=== PATIENT | male | born 1990 | race Caucasian/White ===

== ENCOUNTER 2016-10-07 23:47 | Inpatient (IN) | payer OTHER ==
[~2016-10-07] VITALS: Ht 182.9 cm; Wt 108.8 kg
[2016-10-08 00:08] LABS: MEAN CORPUSCULAR HEMOGLOBIN 28.8 pg (27.0-33.0); MEAN CORPUSCULAR HGB CONC 33.7 g/dl (32.0-36.5); MEAN CORPUSCULAR VOLUME 85.4 fl (80.0-96.0); RED CELL DISTRIBUTION WIDTH 12.7 % (11.5-14.5); WHITE BLOOD COUNT 15.6 K/mm3 (4.0-10.0)
[2016-10-08] MEDS ORDERED: HALOPERIDOL 5 MG/ML VIAL (J1630) As Ordered ONE (00:11)
[2016-10-08] MEDS ORDERED: diphenhydrAMINE INJ 50MG/ML VIAL (J1200) As Ordered ONE (00:11)
[2016-10-08 00:43] LABS: ALBUMIN 4.6 GM/DL (3.2-5.2); ALBUMIN/GLOBULIN RATIO 1.53 (1.00-1.93); ALKALINE PHOSPHATASE 101 U/L (45-117); ALT/SGPT 57 U/L (12-78); ANION GAP 13 MEQ/L (8-16); AST/SGOT 75 U/L (15-37); BILIRUBIN,DIRECT 0.2 MG/DL (0.0-0.2); BILIRUBIN,TOTAL 0.9 MG/DL (0.2-1.0); BLOOD UREA NITROGEN 40 MG/DL (7-18); CALCIUM LEVEL 8.7 MG/DL (8.5-10.1); CARBON DIOXIDE LEVEL 22 MEQ/L (21-32); CHLORIDE LEVEL 110 MEQ/L (98-107); CREATININE FOR GFR 1.77 MG/DL (0.70-1.30); GLOMERULAR FILTRATION RATE 49.8 (>60); GLUCOSE, FASTING 83 MG/DL (70-105); SODIUM LEVEL 145 MEQ/L (136-145); TOTAL PROTEIN 7.6 GM/DL (6.4-8.2)
[2016-10-08 01:15] LABS: AMPHETAMINES LEVEL URINE NEGATIVE (NEGATIVE); BENZODIAZEPINES URINE NEGATIVE (NEGATIVE); COCAINE METABOLITE URINE POSITIVE (NEGATIVE); CONTROL LINE INT CTR LINE PRESENT; METHADONE URINE NEGATIVE (NEGATIVE); OPIATES URINE NEGATIVE (NEGATIVE); TRICYCLIC ANTIDEPRESS URINE NEGATIVE (NEGATIVE)
[2016-10-08] MEDS ORDERED: PROA1AER INH (01:46)
[2016-10-08] MEDS ORDERED: IPRATROPIUM 0.5MG/ALBUTEROL 2.5MG INH SOL UD 3ML (DUONEB)(J7620) NEB PRN (02:30)
[2016-10-08] MEDS ORDERED: LORazepam 2 MG/ML VIAL (J2060) IV PRN (02:30)
[2016-10-08] MEDS ORDERED: ONDANSETRON 4MG/2ML VIAL (J2405) IV PRN (02:45)
--- NOTE | 2016-10-08 03:42 | HPE ---
DATE OF ADMISSION: 10/08/2016 PRIMARY CARE PROVIDER: None. CHIEF COMPLAINT: Confusion, altered mental status. HISTORY OF PRESENT ILLNESS: Limited secondary to patient's mental status. This is a 26-year-old male patient with underlying medical history of asthma, polysubstance abuse. Patient is actually well known to the emergency room for substance abuse in the past with recurrent emergency department (ED) visits for substance abuse. As per ED record, patient was brought in by police. Reported was doing roldan last night and patient was in the middle of the road extremely restless. Patient admits to doing Kpin to relax. In the emergency room, patient was extremely agitated and restless, was given Haldol and Ativan and Benadryl. Subsequently, patient also found to have urine toxicology preliminary positive for cocaine. Patient was also found to be in rhabdomyolysis. Subsequently, hospitalist called for admission. Further history not possible. ALLERGIES: No known allergies documented. HOME MEDICATIONS: - ProAir inhaler every 4 hours as needed PAST MEDICAL HISTORY: 1. Polysubstance abuse. 2. Asthma. PAST SURGICAL HISTORY: Unknown. SOCIAL HISTORY: ED documented patient does smoke every day, unknown amount given patient is not able to give a history. Patient uses street drugs. Possible abuse of Klonopin, Xanax and police did report patient was using roldan. Urine toxicology is positive for cocaine. FAMILY HISTORY: Unable to obtain. REVIEW OF SYSTEMS: Unable to obtain. PHYSICAL EXAMINATION: VITAL SIGNS: Heart rate 103, blood pressure 131/61, respirations 20, temperature 98.7, pulse oximetry 98% on room air. GENERAL: Patient comfortable in no acute distress, sleeping, arousable with sternal rubs, but upon arousal patient shakes his head, moves around and moans a little bit, subsequently goes back to sleep, unable to give any significant verbal answers. HEENT: Normocephalic, atraumatic. Pupils are constricted bilaterally, but reactive. PULMONARY: Bilaterally clear to auscultation. CARDIAC: Tachycardia, regular. ABDOMEN: Soft, hypoactive bowel sounds. EXTREMITIES: No edema bilateral extremities, withdrawing from pain bilateral upper and lower extremities. EKG sinus tachycardia at 101. No ST segment changes. LABORATORY: WBC 15.6, hemoglobin and hematocrit 12.2/42, platelets 260. Chemistry: Sodium 145, potassium 4, chloride 110, bicarbonate 22, anion gap 13, BUN 40, creatinine 1.77. Total CK 2782, TSH 2.22. ASSESSMENT AND PLAN: This is a 26-year-old male patient with underlying medical history of asthma, polysubstance abuse, admitted with restlessness, confusion. 1. Encephalopathy and confusion, restlessness. Likely secondary to substance abuse. Followup toxicology workup. Followup ABG, osmolality gap. Followup cardiac enzymes. Telemetry monitoring. One-to-one sitter. Aggression precautions. Nothing by mouth for now. Seizure precautions. Withdrawal precautions. Ativan as needed. Fall precautions. Will continue to monitor. Patient and family services (PFS) consulted. 2. Rhabdomyolysis. Trend CPK. Intravenous (IV) fluids for hydration. Followup kidney function. Tamez catheter for strict intake and output (I and O). Daily weight. 3. Acute on chronic renal insufficiency. Last creatinine on the blood tests was 1.4, currently at 1.77. IV fluids for hydration. Urine study as ordered. Followup ultrasound. Tamez catheter for now given will need to obtain urine from the patient and need to monitor patient in acute setting. 4. Leukocytosis. Likely reactive secondary to polysubstance abuse and encephalopathy. No source of infection. Followup urinalysis, blood cultures, chest x-ray. Followup C-reactive protein. IV fluids for hydration right now. 5. History of asthma. Patient currently not having any significant wheeze. DuoNebs as needed. 6. Deep venous thrombosis (DVT) prophylaxis. Heparin subcutaneously. DISPOSITION PLANNING: Will get CT scans, workup for acute on chronic renal failure. Pending clinical improvement, improvement in mental status.
--- NOTE | 2016-10-08 04:30 | REPUSA ---
CLINICAL HISTORY: Altered mental status. TECHNIQUE: Multiple axial brain CT scan sections were obtained from base to vertex without contrast a dministration. COMMENTS: The study shows normal configuration of sella turcica. There are no intra or extra-axial collections. There is no mass effect or midline shift. There is no evidence of hematoma formation. No hydrocephal us is present. No abnormal calcifications are noted. No significant abnormalities are seen either in the posterior fossa or supratentorial compartment. The sinuses and mastoid air cells are patent. IMPRESSION: No evidence of acute intracranial pathology. Thank you for your kind referral of this patient.
[2016-10-08 06:35] LABS: MEAN CORPUSCULAR HEMOGLOBIN 29.4 pg (27.0-33.0); MEAN CORPUSCULAR HGB CONC 33.4 g/dl (32.0-36.5); MEAN CORPUSCULAR VOLUME 88.2 fl (80.0-96.0); RED CELL DISTRIBUTION WIDTH 12.5 % (11.5-14.5); WHITE BLOOD COUNT 10.9 K/mm3 (4.0-10.0)
[2016-10-08 06:40] LABS: INR 1.16
[2016-10-08 07:21] LABS: ANION GAP 11 MEQ/L (8-16); BLOOD UREA NITROGEN 37 MG/DL (7-18); CALCIUM LEVEL 8.3 MG/DL (8.5-10.1); CARBON DIOXIDE LEVEL 23 MEQ/L (21-32); CHLORIDE LEVEL 114 MEQ/L (98-107); CREATININE FOR GFR 1.28 MG/DL (0.70-1.30); GLOMERULAR FILTRATION RATE > 60.0 (>60); GLUCOSE, FASTING 83 MG/DL (70-105); MAGNESIUM LEVEL 2.7 MG/DL (1.8-2.4); POTASSIUM SERUM 3.9 MEQ/L (3.5-5.1); SODIUM LEVEL 148 MEQ/L (136-145)
--- NOTE | 2016-10-08 07:57 | REP ---
Urinary tract sonogram: History: Acute kidney injury. Overdose. Comparison: CT chest abdomen and pelvis February 10, 2016. Findings: Scanning at the level of the urinary bladder shows no abnormality. Renal cortical echogenicity pattern is normal bilaterally and contours are smooth. There is no evidence of hydronephrosis, cyst, mass, or calculus in either kidney. The right kidney measures 10.9 x 5.0 x 6.1 cm. Left renal dimensions are 10.4 x 5.6 x 5.5 cm. The left kidney is located in the pelvis as seen on recent CT. Impression: Pelvic kidney on the left side as seen on recent CT, otherwise negative urinary tract sonography. Signed by Mookie Renee MD 10/08/2016 07:49 A
--- NOTE | 2016-10-08 08:14 | REP ---
PORTABLE CHEST X-RAY: Single view. HISTORY: Question pneumonia. Comparison chest x-rays from June 16, 2012. FINDINGS: EKG monitoring electrodes overlie the chest. The heart is not enlarged. Lungs are well inflated and clear. Pleural angles are sharp. There is an old healed right clavicle fracture. IMPRESSION: No active disease. Signed by Mookie Renee MD 10/08/2016 10:06 A
--- NOTE | 2016-10-08 09:04 | ECGEPIP ---
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
[2016-10-08] MEDS: SENOKOT S TAB PO SCH ×2 (09:14→20:04)
[2016-10-08] MEDS: HEPARIN SOD (PORCINE) 5000 UNITS/ML VIAL SC SCH ×3 (09:14→20:05)
[2016-10-08] MEDS: LR 1,000 ML IV SCH ×3 (09:15→16:30)
[2016-10-08] MEDS ORDERED: HEPARIN SOD (PORCINE) 5000 UNITS/ML VIAL As Ordered ONE (15:53)
--- NOTE | 2016-10-08 16:11 | EDDOCDS ---
Physician Documentation [facility] Name: Memo Santamaria Age: 26 yrs Sex: Male : 1990 Arrival Date: 10/07/2016 Time: 23:47 Bed 3 Private MD: Disposition: 10/08/16 01:17 Hospitalization ordered by Mireya Mcguire for Inpatient Admission. Preliminary diagnosis is Rhabdomyolysis. - Bed requested for PCU. - Status is Inpatient Admission. bcj - Condition is Stable. - Problem is new. - Symptoms have improved. Historical: - Allergies: No known drug Allergies; - Home Meds: 1. albuterol sulfate 90 mcg/actuation Inhl HFAA 1 puff every 4 hours as needed - PMHx: Asthma; - PSHx: none; - Social history: Smoking status: Patient uses tobacco products, current every day smoker. No barriers to communication noted, The patient speaks fluent Fijian, Patient uses street drugs, pt states he took Clonopin and xanax tonight . - Family history: Not pertinent. - : The pt / caregiver states he / she is not on anticoagulants. Home medication list is obtained from the patient. - Exposure Risk Screening:: None identified. Vital Signs: 10/07 23:53 BP 169 / 80; Pulse 120; Resp 20; Temp 98.7(TE); Pulse Ox 96% on R/A; Weight 106.59 kg / mlc 234.99 lbs; Height 6 ft. 0 in. (182.88 cm); Pain 0/10; 10/08 00:00 Pulse 118 MON; Pulse Ox 96% ; mlc 00:00 BP 153 / 72 (auto/); mlc 00:30 BP 131 / 61 (auto/); mlc 00:31 Pulse 100 MON; Pulse Ox 97% ; mlc 00:51 Pulse 103 MON; Pulse Ox 98% ; mlc 01:00 BP 139 / 63 (auto/); mlc 01:01 Pulse 99 MON; Pulse Ox 96% ; mlc 01:30 BP 137 / 59 (auto/); mlc 01:38 Pulse 100 MON; Pulse Ox 95% ; mlc 02:00 BP 134 / 60 (auto/); mlc 02:01 Pulse 101 MON; Pulse Ox 95% ; mlc 02:15 Pulse 102 MON; Pulse Ox 95% ; mlc 02:30 BP 115 / 56 (auto/); mlc 02:31 Pulse 101 MON; Pulse Ox 95% ; mlc 03:00 BP 138 / 75 (auto/); mlc 03:01 Pulse 92 MON; Pulse Ox 97% ; mlc 03:30 BP 137 / 63 (auto/); mlc 03:31 Pulse 95 MON; Pulse Ox 98% ; mlc 04:00 BP 137 / 60 (auto/); mlc 04:01 Pulse 92 MON; Pulse Ox 97% ; [facility] [place] 04:06 Temp 98.9(TE); mlc 05:00 BP 124 / 58 (auto/); mlc 05:04 Pulse 93 MON; Pulse Ox 97% ; mlc 06:00 BP 114 / 56 (auto/); mlc 06:01 Pulse 91 MON; Pulse Ox 96% ; mlc 06:38 Pulse 103 MON; Pulse Ox 97% ; mlc 06:59 Pulse 99 MON; Pulse Ox 95% ; kr3 07:00 BP 102 / 77 (auto/); kr3 08:01 BP 111 / 65; Pulse 100; Resp 16; Temp 96.2; Pulse Ox 100% on R/A; Pain 0/10; kr3 09:20 BP 101 / 56; Pulse 90; Resp 18; Pulse Ox 96% on R/A; kr3 10:00 BP 136 / 60 (auto/); kr3 10:00 Pulse 92 MON; Pulse Ox 95% ; kr3 11:24 BP 102 / 57; Pulse 87; Resp 18; Pulse Ox 94% on R/A; kr3 12:00 BP 128 / 60 (auto/); kr3 12:01 Pulse 85 MON; Pulse Ox 96% ; kr3 13:00 BP 112 / 54 (auto/); kr3 13:00 Pulse 85 MON; Pulse Ox 97% ; kr3 14:00 BP 108 / 58 (auto/); kr3 14:01 Pulse 90 MON; Resp 16; Temp 96.9(O); Pulse Ox 97% on R/A; kr3 14:57 BP 108 / 56; Pulse 85; Resp 16; Temp 97(O); Pulse Ox 97% on R/A; Pain 0/10; kr3 15:00 BP 131 / 57 (auto/); kr3 15:01 Pulse 85 MON; Pulse Ox 97% ; kr3 10/07 23:53 Body Mass Index 31.87 (106.59 kg, 182.88 cm) [facility] [place] MDM: 10/07 23:54 Consult PFS/PSA/Shoe Lining Fitter ordered. sep 23:54 Consult PFS/PSA/Shoe Lining Fitter: Patient's case requires discussion with on-call rishi Psychiatrist ordered. 23:54 PSA/PFS to call Nursing Showcase Maker, to enter patient data on [place] Safe Act if patient rishi involuntarily admitted or transferred for SI or HI ordered. 23:54 Confirm accurate psychiatric medication list and times of last dosage ordered. sep 23:54 Detain Pt Until Medically/PFS Cleared ordered. sep 23:56 Acetaminophen Level Ordered. EDMS 23:56 Basic Metabolic Profile Ordered. EDMS 23:56 Complete Blood Count Ordered. EDMS 23:56 Drug Eval Toxicology ED Only Ordered. EDMS 23:56 Ethyl Alcohol (ethanol) Ordered. EDMS 23:56 Liver Profile Ordered. EDMS 23:56 Salicylate Level Ordered. EDMS 23:56 Thyroid Stimulating Hormone Ordered. EDMS 23:56 ECG WITH READING ER PHYS+CARDIAG ordered. EDMS 02/04 00:00 MHE Legal paperwork was scanned into [employer] and attached to record. jfb 00:06 NS 0.9% 1000 ml IV at bolus once ordered. cs11 00:06 Haloperidol 5 mg IVP once ordered. cs11 00:06 diphenhydrAMINE 50 mg IVP once ordered. cs11 00:06 BATH SALTS URINE Ordered. EDMS 00:06 SYNTHETIC THC URINE Ordered. EDMS 00:16 CREATINE PHOSPHOKINASE Ordered. EDMS 00:40 Complete Blood Count Reviewed. cs11 00:57 Acetaminophen Level Reviewed. cs11 00:57 Basic Metabolic Profile Reviewed. cs11 00:57 Liver Profile Reviewed. cs11 00:57 Salicylate Level Reviewed. cs11 00:57 CREATINE PHOSPHOKINASE Reviewed. cs11 00:57 Ethyl Alcohol (ethanol) Reviewed. cs11 00:57 Thyroid Stimulating Hormone Reviewed. cs11 00:58 NS 0.9% 1000 ml IV at bolus once ordered. cs11 01:17 BED REQUEST+ADM ordered. EDMS 01:18 Drug Eval Toxicology ED Only Reviewed. cs11 01:44 Financial registration complete. slh 02:14 [facility] Payment Agreement was scanned into [employer] and attached to record. sl 02:25 Consult PFS/PSA/Shoe Lining Fitter complete. jfb 02:28 LACTIC ACID LEVEL, LACTATE Ordered. EDMS 02:28 CARDIAC MARKER PANEL Ordered. EDMS 02:28 OSMOLALITY,URINE Ordered. EDMS 02:28 SODIUM,RANDOM URINE Ordered. EDMS 02:28 CHLORIDE,RANDOM URINE Ordered. EDMS 02:28 POTASSIUM,RANDOM URINE Ordered. EDMS 02:29 TOTAL PROTEIN,RANDOM URINE Ordered. EDMS 02:29 CREATININE,RANDOM URINE Ordered. EDMS 02:29 URINALYSIS Ordered. EDMS 02:29 URINE CULTURE Ordered. EDMS 02:29 BLOOD CULTURES Ordered. EDMS 02:29 BLOOD CULTURES Ordered. EDMS 02:33 CT Head without contrast Ordered. EDMS 02:34 C REACTIVE PROTEIN QUANTITATIV Ordered. EDMS 02:34 RENAL US Ordered. EDMS 02:35 PROTHROMBIN TIME PROFILE\E\INR Ordered. EDMS 02:35 COMPLETE BLOOD COUNT Ordered. EDMS 02:36 BASIC METABOLIC PROFILE Ordered. EDMS 02:36 MAGNESIUM LEVEL Ordered. EDMS 02:37 Admission / Observation Status ordered. EDMS 02:48 Chest, 1 view Ordered. EDMS 03:30 CARDIAC MARKER PANEL Ordered. EDMS 04:05 LR Solution 1000 ml IV at 200 mL/hr once ordered. [facility] [place] 06:12 OSMOLALITY, SERUM Ordered. EDMS 06:37 REGULAR DIET PED PLASTIC MEJÍA ordered. EDMS Administered Medications: 00:10 Drug: NS 0.9% 1000 ml [sodium chloride 0.9 % intravenous solution] Route: IV; Rate: rishi bolus; Site: right antecubital; 01:12 Follow up: IV Status: Completed infusion [facility] [place] 00:20 Drug: Haloperidol 5 mg [haloperidol lactate 5 mg/mL injection solution (1 mL)] Route: mlc IVP; Site: right antecubital; 00:54 Follow up: Response: Anxiety is improved; No Adverse Reaction [facility] [place] 00:20 Drug: diphenhydrAMINE 50 mg [diphenhydramine 50 mg/mL injection solution (1 mL)] Route: mlc IVP; Site: right antecubital; 00:54 Follow up: Response: No Adverse Reaction [facility] 01:12 Drug: NS 0.9% 1000 ml [sodium chloride 0.9 % intravenous solution] Route: IV; Rate: mlc bolus; Site: right antecubital; 02:17 Follow up: IV Status: Completed infusion mlc 04:05 Drug: LR 1000 ml [lactated ringers intravenous solution] Route: IV; Rate: 200 mL/hr; [facility] [place] [place] Site: right antecubital; 15:01 Follow up: IV Status: Infusion continued upon admit kr3 Signatures: Dispatcher [employer] EDMS Franklin Maguire, RN RN ty Moreno, Janeth Pablo, RN Sarahy Fontana RN RN [id number] Danni Carpio RN RN [id number] Betty Arambula, PSA PSA jfb Harish Kitchen, DO DO cs11 Ofelia Gallardo,RN Stephenie Urrutia [facility] The chart was reviewed and I authenticate all verbal orders and agree with the evaluation and treatment provided.Corrections: (The following items were deleted from the chart) 00:16 00:07 CREATINE PHOSPHOKINASE+LAB ordered. EDMS EDMS 03:30 02:28 CARDIAC MARKER PANEL ordered. EDMS EDMS 06:14 02:28 OSMOLALITY, SERUM ordered. EDMS EDMS 06:16 06:14 ISOPROPANOL,ISOPROPYL ALCOHOL ordered. EDMS EDMS 06:37 02:37 NPO DIET ordered. EDMS EDMS 06:57 06:14 ETHYLENE GLYCOL ordered. EDMS EDMS 06:57 06:14 METHANOL POISON CONTROL (ED) ordered. EDMS EDMS 08:50 02:28 ARTERIAL BLOOD GAS ordered. EDMS EDMS 08:50 06:11 ARTERIAL BLOOD GAS ordered. EDMS EDMS Attachments: 02:14 [facility] [facility]
--- NOTE | 2016-10-08 16:11 | EDDOCDS ---
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 Hospitalize by Provider. cs11 06:01 CT Study completed. mlc 08:03 Ultrasound Study completed. kr3 15:12 Admission hand-off: Report Faxed Fax receipt verified by staff on PCU, unable to accept kr3 patient at this time. 15:59 Discharge Assessment: patient administered narcotics - no. The following High Risk kr3 Discharge criteria are identified: Yes, Admitted to PCU accompanied by nurse, accompanied by tech, via stretcher, on monitor, with chart. Condition: stable. Property :Personal belongings accompany Pt. 16:10 Patient left the ED. ty Signatures: Dispatcher [employer] Franklin Cantor, RN RN ty Moreno, Janeth Pablo, RN RN rishi Jc, TalitaJazzmineItzel, Plywood Layup Line Core Layer Unit ml3 Sarahy Roland,RN RN kr3 Misbah, Audelia, TRUCK LEASING MANAGER TRUCK LEASING MANAGER ar3 Betty Arambula, PSA PSA jfb Paddy Chavez, DO DO cs11 Leeanne Cruz am17 Ofelia Gallardo,JOY Izquierdo, Stephenie islash Renny, Crystal, TRUCK LEASING MANAGER TRUCK LEASING MANAGER cln Corrections: (The following items were deleted from the chart) 00:54 00:00 Straight cath inserted Specimen obtained. returned clear yellow urine. [place] [facility] [place]:39 13:38 Urine 800, (Voided), Output Total 800. kr3 kr3 14:10 14:01 Pulse 90bpm; Monitor; Pulse Ox 97%; kr3 kr3 MTDD
[2016-10-08 16:27] VITALS: BP 129/56
[2016-10-08 19:29] LABS: OSMOLALITY URINE 421 MOSM/KG (500-800)
[2016-10-08 19:58] VITALS: BP 113/54
[2016-10-08 23:59] VITALS: BP 101/50
[2016-10-09] MEDS: LR 1,000 ML IV SCH ×3 (00:04→09:38)
[2016-10-09 05:18] VITALS: BP 122/61
[2016-10-09 05:22] LABS: MEAN CORPUSCULAR HEMOGLOBIN 29.6 pg (27.0-33.0); MEAN CORPUSCULAR HGB CONC 33.7 g/dl (32.0-36.5); MEAN CORPUSCULAR VOLUME 87.9 fl (80.0-96.0); RED CELL DISTRIBUTION WIDTH 12.8 % (11.5-14.5); WHITE BLOOD COUNT 3.6 K/mm3 (4.0-10.0)
[2016-10-09] MEDS: HEPARIN SOD (PORCINE) 5000 UNITS/ML VIAL SC SCH (05:24)
[2016-10-09 05:33] LABS: ANION GAP 7 MEQ/L (8-16); BLOOD UREA NITROGEN 17 MG/DL (7-18); CALCIUM LEVEL 7.7 MG/DL (8.5-10.1); CARBON DIOXIDE LEVEL 27 MEQ/L (21-32); CHLORIDE LEVEL 110 MEQ/L (98-107); CREATININE FOR GFR 0.91 MG/DL (0.70-1.30); GLOMERULAR FILTRATION RATE > 60.0 (>60); GLUCOSE, FASTING 97 MG/DL (70-105); MAGNESIUM LEVEL 2.3 MG/DL (1.8-2.4); POTASSIUM SERUM 3.7 MEQ/L (3.5-5.1); SODIUM LEVEL 144 MEQ/L (136-145)
[2016-10-09 08:00] VITALS: BP 115/53
[2016-10-09] MEDS: SENOKOT S TAB PO SCH (09:38)
[2016-10-09 11:39] VITALS: BP 132/62
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
--- NOTE | 2016-10-10 17:11 | EDDOCDS ---
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 heart is not; enlarged. Lungs are well inflated and clear. Pleural angles are sharp. There; is an old healed right clavicle fracture.; ; IMPRESSION: No active disease.; ; ; Signed by; Mookie Renee MD 10/08/2016 10:06 A; Outcome: 01:17 Decision to Hospitalize by Provider. cs11 06:01 CT Study completed. mlc 08:03 Ultrasound Study completed. kr3 15:12 Admission hand-off: Report Faxed Fax receipt verified by staff on PCU, unable to accept kr3 patient at this time. 15:59 Discharge Assessment: patient administered narcotics - no. The following High Risk kr3 Discharge criteria are identified: Yes, Admitted to PCU accompanied by nurse, accompanied by tech, via stretcher, on monitor, with chart. Condition: stable. Property :Personal belongings accompany Pt. 16:10 Patient left the ED. [facility] Signatures: Dispatcher [employer] EDFranklin Fernandez, RN JOY Moreno, Janeth Pablo RN JOY Neville, Karen, Reg Reg gb Jc, Yu, Printing Specialist Unit ml3 Sarahy Roland,JOY HAMILTON kr3 Audelia Crawley, MANAGING JEWELER MANAGING JEWELER ar3 Betty Arambula, PSA PSA jfb Paddy Chavez, DO DO cs11 Leeanne Cruz am17 Ofelia Gallardo,RN JOY mlc Timbo, Stephenie islash Renny, Crystal, MANAGING JEWELER MANAGING JEWELER cln Karen Membreno Corrections: (The following items were deleted from the chart) 00:54 00:00 Straight cath inserted Specimen obtained. returned clear yellow urine. Patient mlc tolerated well mlc 13:39 13:38 Urine 800, (Voided), Output Total 800. kr3 kr3 14:10 14:01 Pulse 90bpm; Monitor; Pulse Ox 97%; kr3 kr3 Chart Complete MTDD
--- NOTE | 2016-10-10 17:11 | EDDOCDS ---
Physician Documentation [facility] Name: Memo Santamaria Age: 26 yrs Sex: Male : 1990 Arrival Date: 10/07/2016 Time: 23:47 Bed 3 Private MD: Disposition: 10/08/16 01:17 Hospitalization ordered by Mireya Mcguire for Inpatient Admission. Preliminary diagnosis is Rhabdomyolysis. - Bed requested for PCU. - Status is Inpatient Admission. bcj - Condition is Stable. - Problem is new. - Symptoms have improved. Historical: - Allergies: No known drug Allergies; - Home Meds: 1. albuterol sulfate 90 mcg/actuation Inhl HFAA 1 puff every 4 hours as needed - PMHx: Asthma; - PSHx: none; - Social history: Smoking status: Patient uses tobacco products, current every day smoker. No barriers to communication noted, The patient speaks fluent Filipino, Patient uses street drugs, pt states he took Clonopin and xanax tonight . - Family history: Not pertinent. - : The pt / caregiver states he / she is not on anticoagulants. Home medication list is obtained from the patient. - Exposure Risk Screening:: None identified. Vital Signs: 10/07 23:53 BP 169 / 80; Pulse 120; Resp 20; Temp 98.7(TE); Pulse Ox 96% on R/A; Weight 106.59 kg / mlc 234.99 lbs; Height 6 ft. 0 in. (182.88 cm); Pain 0/10; 10/08 00:00 Pulse 118 MON; Pulse Ox 96% ; mlc 00:00 BP 153 / 72 (auto/); mlc 00:30 BP 131 / 61 (auto/); mlc 00:31 Pulse 100 MON; Pulse Ox 97% ; mlc 00:51 Pulse 103 MON; Pulse Ox 98% ; mlc 01:00 BP 139 / 63 (auto/); mlc 01:01 Pulse 99 MON; Pulse Ox 96% ; mlc 01:30 BP 137 / 59 (auto/); mlc 01:38 Pulse 100 MON; Pulse Ox 95% ; mlc 02:00 BP 134 / 60 (auto/); mlc 02:01 Pulse 101 MON; Pulse Ox 95% ; mlc 02:15 Pulse 102 MON; Pulse Ox 95% ; mlc 02:30 BP 115 / 56 (auto/); mlc 02:31 Pulse 101 MON; Pulse Ox 95% ; mlc 03:00 BP 138 / 75 (auto/); mlc 03:01 Pulse 92 MON; Pulse Ox 97% ; mlc 03:30 BP 137 / 63 (auto/); mlc 03:31 Pulse 95 MON; Pulse Ox 98% ; mlc 04:00 BP 137 / 60 (auto/); mlc 04:01 Pulse 92 MON; Pulse Ox 97% ; [facility] 04:06 Temp 98.9(TE); mlc 05:00 BP 124 / 58 (auto/); mlc 05:04 Pulse 93 MON; Pulse Ox 97% ; mlc 06:00 BP 114 / 56 (auto/); mlc 06:01 Pulse 91 MON; Pulse Ox 96% ; mlc 06:38 Pulse 103 MON; Pulse Ox 97% ; mlc 06:59 Pulse 99 MON; Pulse Ox 95% ; kr3 07:00 BP 102 / 77 (auto/); kr3 08:01 BP 111 / 65; Pulse 100; Resp 16; Temp 96.2; Pulse Ox 100% on R/A; Pain 0/10; kr3 09:20 BP 101 / 56; Pulse 90; Resp 18; Pulse Ox 96% on R/A; kr3 10:00 BP 136 / 60 (auto/); kr3 10:00 Pulse 92 MON; Pulse Ox 95% ; kr3 11:24 BP 102 / 57; Pulse 87; Resp 18; Pulse Ox 94% on R/A; kr3 12:00 BP 128 / 60 (auto/); kr3 12:01 Pulse 85 MON; Pulse Ox 96% ; kr3 13:00 BP 112 / 54 (auto/); kr3 13:00 Pulse 85 MON; Pulse Ox 97% ; kr3 14:00 BP 108 / 58 (auto/); kr3 14:01 Pulse 90 MON; Resp 16; Temp 96.9(O); Pulse Ox 97% on R/A; kr3 14:57 BP 108 / 56; Pulse 85; Resp 16; Temp 97(O); Pulse Ox 97% on R/A; Pain 0/10; kr3 15:00 BP 131 / 57 (auto/); kr3 15:01 Pulse 85 MON; Pulse Ox 97% ; kr3 10/07 23:53 Body Mass Index 31.87 (106.59 kg, 182.88 cm) [facility] MDM: 10/07 23:54 Consult PFS/PSA/Immunology Teacher ordered. sep 23:54 Consult PFS/PSA/Immunology Teacher: Patient's case requires discussion with on-call rishi Psychiatrist ordered. 23:54 PSA/PFS to call Nursing Software Engineering Project Manager, to enter patient data on [place] Safe Act if patient rishi involuntarily admitted or transferred for SI or HI ordered. 23:54 Confirm accurate psychiatric medication list and times of last dosage ordered. sep 23:54 Detain Pt Until Medically/PFS Cleared ordered. sep 23:56 Acetaminophen Level Ordered. EDMS 23:56 Basic Metabolic Profile Ordered. EDMS 23:56 Complete Blood Count Ordered. EDMS 23:56 Drug Eval Toxicology ED Only Ordered. EDMS 23:56 Ethyl Alcohol (ethanol) Ordered. EDMS 23:56 Liver Profile Ordered. EDMS 23:56 Salicylate Level Ordered. EDMS 23:56 Thyroid Stimulating Hormone Ordered. EDMS 23:56 ECG WITH READING ER PHYS+CARDIAG ordered. EDMS 02/04 00:00 MHE Legal paperwork was scanned into [employer] and attached to record. jfb 00:06 NS 0.9% 1000 ml IV at bolus once ordered. cs11 00:06 Haloperidol 5 mg IVP once ordered. cs11 00:06 diphenhydrAMINE 50 mg IVP once ordered. cs11 00:06 BATH SALTS URINE Ordered. EDMS 00:06 SYNTHETIC THC URINE Ordered. EDMS 00:16 CREATINE PHOSPHOKINASE Ordered. EDMS 00:40 Complete Blood Count Reviewed. cs11 00:57 Acetaminophen Level Reviewed. cs11 00:57 Basic Metabolic Profile Reviewed. cs11 00:57 Liver Profile Reviewed. cs11 00:57 Salicylate Level Reviewed. cs11 00:57 CREATINE PHOSPHOKINASE Reviewed. cs11 00:57 Ethyl Alcohol (ethanol) Reviewed. cs11 00:57 Thyroid Stimulating Hormone Reviewed. cs11 00:58 NS 0.9% 1000 ml IV at bolus once ordered. cs11 01:17 BED REQUEST+ADM ordered. EDMS 01:18 Drug Eval Toxicology ED Only Reviewed. cs11 01:44 Financial registration complete. slh 02:14 [facility] Payment Agreement was scanned into [employer] and attached to record. sl 02:25 Consult PFS/PSA/Immunology Teacher complete. jfb 02:28 LACTIC ACID LEVEL, LACTATE Ordered. EDMS 02:28 CARDIAC MARKER PANEL Ordered. EDMS 02:28 OSMOLALITY,URINE Ordered. EDMS 02:28 SODIUM,RANDOM URINE Ordered. EDMS 02:28 CHLORIDE,RANDOM URINE Ordered. EDMS 02:28 POTASSIUM,RANDOM URINE Ordered. EDMS 02:29 TOTAL PROTEIN,RANDOM URINE Ordered. EDMS 02:29 CREATININE,RANDOM URINE Ordered. EDMS 02:29 URINALYSIS Ordered. EDMS 02:29 URINE CULTURE Ordered. EDMS 02:29 BLOOD CULTURES Ordered. EDMS 02:29 BLOOD CULTURES Ordered. EDMS 02:33 CT Head without contrast Ordered. EDMS 02:34 C REACTIVE PROTEIN QUANTITATIV Ordered. EDMS 02:34 RENAL US Ordered. EDMS 02:35 PROTHROMBIN TIME PROFILE\E\INR Ordered. EDMS 02:35 COMPLETE BLOOD COUNT Ordered. EDMS 02:36 BASIC METABOLIC PROFILE Ordered. EDMS 02:36 MAGNESIUM LEVEL Ordered. EDMS 02:37 Admission / Observation Status ordered. EDMS 02:48 Chest, 1 view Ordered. EDMS 03:30 CARDIAC MARKER PANEL Ordered. EDMS 04:05 LR Solution 1000 ml IV at 200 mL/hr once ordered. [facility] 06:12 OSMOLALITY, SERUM Ordered. EDMS 06:37 REGULAR DIET PED PLASTIC MEJÍA ordered. EDMS 18:50 T-Sheet-- Draft Copy was scanned into [employer] and attached to record. r 10/09 15:04 ECG/EKG was scanned into [employer] and attached to record. gb Administered Medications: 10/08 00:10 Drug: NS 0.9% 1000 ml [sodium chloride 0.9 % intravenous solution] Route: IV; Rate: rishi bolus; Site: right antecubital; 01:12 Follow up: IV Status: Completed infusion mlc 00:20 Drug: Haloperidol 5 mg [haloperidol lactate 5 mg/mL injection solution (1 mL)] Route: mlc IVP; Site: right antecubital; 00:54 Follow up: Response: Anxiety is improved; No Adverse Reaction mlc 00:20 Drug: diphenhydrAMINE 50 mg [diphenhydramine 50 mg/mL injection solution (1 mL)] Route: mlc IVP; Site: right antecubital; 00:54 Follow up: Response: No Adverse Reaction mlc 01:12 Drug: NS 0.9% 1000 ml [sodium chloride 0.9 % intravenous solution] Route: IV; Rate: mlc bolus; Site: right antecubital; 02:17 Follow up: IV Status: Completed infusion mlc 04:05 Drug: LR 1000 ml [lactated ringers intravenous solution] Route: IV; Rate: 200 mL/hr; [facility] Site: right antecubital; 15:01 Follow up: IV Status: Infusion continued upon admit kr3 Signatures: Dispatcher [employer] Franklin Cantor, RN JOY Moreno, Janeth Pablo, RN Karen Fournier, Reg Reg Sarahy Garnett RN RN kr3 Danni Carpio RN RN mf3 Betty Arambula, PSA PSA jfb Harish Kitchen, DO DO cs11 Ofelia Gallardo RN RN mlc Hook, Sandra [facility] Karen Membreno The chart was reviewed and I authenticate all verbal orders and agree with the evaluation and treatment provided.Corrections: (The following items were deleted from the chart) 00:16 00:07 CREATINE PHOSPHOKINASE+LAB ordered. EDMS EDMS 03:30 02:28 CARDIAC MARKER PANEL ordered. EDMS EDMS 06:14 02:28 OSMOLALITY, SERUM ordered. EDMS EDMS 06:16 06:14 ISOPROPANOL,ISOPROPYL ALCOHOL ordered. EDMS EDMS 06:37 02:37 NPO DIET ordered. EDMS EDMS 06:57 06:14 ETHYLENE GLYCOL ordered. EDMS EDMS 06:57 06:14 METHANOL POISON CONTROL (ED) ordered. EDMS EDMS 08:50 02:28 ARTERIAL BLOOD GAS ordered. EDMS EDMS 08:50 06:11 ARTERIAL BLOOD GAS ordered. EDMS EDMS Attachments: 02:14 [facility] Payment Agreement [facility] 18:50 T-Sheet-- Draft Copy r 10/09 15:04 ECG/EKG Chart Complete MTDD
--- NOTE | 2016-10-10 17:11 | EDDOCDS ---
Physician Documentation [facility] Name: Memo Santamaria Age: 26 yrs Sex: Male : 1990 Arrival Date: 10/07/2016 Time: 23:47 Bed 3 Private MD: Disposition: 10/08/16 01:17 Hospitalization ordered by Mireya Mcguire for Inpatient Admission. Preliminary diagnosis is Rhabdomyolysis. - Bed requested for PCU. - Status is Inpatient Admission. bcj - Condition is Stable. - Problem is new. - Symptoms have improved. Historical: - Allergies: No known drug Allergies; - Home Meds: 1. albuterol sulfate 90 mcg/actuation Inhl HFAA 1 puff every 4 hours as needed - PMHx: Asthma; - PSHx: none; - Social history: Smoking status: Patient uses tobacco products, current every day smoker. No barriers to communication noted, The patient speaks fluent [place], Patient uses street drugs, pt states he took Clonopin and xanax tonight . - Family history: Not pertinent. - : The pt / caregiver states he / she is not on anticoagulants. Home medication list is obtained from the patient. - Exposure Risk Screening:: None identified. Vital Signs: 10/07 23:53 BP 169 / 80; Pulse 120; Resp 20; Temp 98.7(TE); Pulse Ox 96% on R/A; Weight 106.59 kg / mlc 234.99 lbs; Height 6 ft. 0 in. (182.88 cm); Pain 0/10; 10/08 00:00 Pulse 118 MON; Pulse Ox 96% ; mlc 00:00 BP 153 / 72 (auto/); mlc 00:30 BP 131 / 61 (auto/); mlc 00:31 Pulse 100 MON; Pulse Ox 97% ; mlc 00:51 Pulse 103 MON; Pulse Ox 98% ; mlc 01:00 BP 139 / 63 (auto/); mlc 01:01 Pulse 99 MON; Pulse Ox 96% ; mlc 01:30 BP 137 / 59 (auto/); mlc 01:38 Pulse 100 MON; Pulse Ox 95% ; mlc 02:00 BP 134 / 60 (auto/); mlc 02:01 Pulse 101 MON; Pulse Ox 95% ; mlc 02:15 Pulse 102 MON; Pulse Ox 95% ; mlc 02:30 BP 115 / 56 (auto/); mlc 02:31 Pulse 101 MON; Pulse Ox 95% ; mlc 03:00 BP 138 / 75 (auto/); mlc 03:01 Pulse 92 MON; Pulse Ox 97% ; mlc 03:30 BP 137 / 63 (auto/); mlc 03:31 Pulse 95 MON; Pulse Ox 98% ; mlc 04:00 BP 137 / 60 (auto/); mlc 04:01 Pulse 92 MON; Pulse Ox 97% ; [facility] 04:06 Temp 98.9(TE); mlc 05:00 BP 124 / 58 (auto/); mlc 05:04 Pulse 93 MON; Pulse Ox 97% ; mlc 06:00 BP 114 / 56 (auto/); mlc 06:01 Pulse 91 MON; Pulse Ox 96% ; mlc 06:38 Pulse 103 MON; Pulse Ox 97% ; mlc 06:59 Pulse 99 MON; Pulse Ox 95% ; kr3 07:00 BP 102 / 77 (auto/); kr3 08:01 BP 111 / 65; Pulse 100; Resp 16; Temp 96.2; Pulse Ox 100% on R/A; Pain 0/10; kr3 09:20 BP 101 / 56; Pulse 90; Resp 18; Pulse Ox 96% on R/A; kr3 10:00 BP 136 / 60 (auto/); kr3 10:00 Pulse 92 MON; Pulse Ox 95% ; kr3 11:24 BP 102 / 57; Pulse 87; Resp 18; Pulse Ox 94% on R/A; kr3 12:00 BP 128 / 60 (auto/); kr3 12:01 Pulse 85 MON; Pulse Ox 96% ; kr3 13:00 BP 112 / 54 (auto/); kr3 13:00 Pulse 85 MON; Pulse Ox 97% ; kr3 14:00 BP 108 / 58 (auto/); kr3 14:01 Pulse 90 MON; Resp 16; Temp 96.9(O); Pulse Ox 97% on R/A; kr3 14:57 BP 108 / 56; Pulse 85; Resp 16; Temp 97(O); Pulse Ox 97% on R/A; Pain 0/10; kr3 15:00 BP 131 / 57 (auto/); kr3 15:01 Pulse 85 MON; Pulse Ox 97% ; kr3 10/07 23:53 Body Mass Index 31.87 (106.59 kg, 182.88 cm) [facility] MDM: 10/07 23:54 Consult PFS/PSA/Kitchen Supervisor ordered. sep 23:54 Consult PFS/PSA/Kitchen Supervisor: Patient's case requires discussion with on-call rishi Psychiatrist ordered. 23:54 PSA/PFS to call Nursing Lift Team Technician, to enter patient data on [place] Safe [place] if patient rishi involuntarily admitted or transferred for SI or HI ordered. 23:54 Confirm accurate psychiatric medication list and times of last dosage ordered. sep 23:54 Detain Pt Until Medically/PFS Cleared ordered. sep 23:56 Acetaminophen Level Ordered. EDMS 23:56 Basic Metabolic Profile Ordered. EDMS 23:56 Complete Blood Count Ordered. EDMS 23:56 Drug Eval Toxicology ED Only Ordered. EDMS 23:56 Ethyl Alcohol (ethanol) Ordered. EDMS 23:56 Liver Profile Ordered. EDMS 23:56 Salicylate Level Ordered. EDMS 23:56 Thyroid Stimulating Hormone Ordered. EDMS 23:56 ECG WITH READING ER PHYS+CARDIAG ordered. EDMS 02/04 00:00 MHE Legal paperwork was scanned into [employer] and attached to record. jfb 00:06 NS 0.9% 1000 ml IV at bolus once ordered. cs11 00:06 Haloperidol 5 mg IVP once ordered. cs11 00:06 diphenhydrAMINE 50 mg IVP once ordered. cs11 00:06 BATH SALTS URINE Ordered. EDMS 00:06 SYNTHETIC THC URINE Ordered. EDMS 00:16 CREATINE PHOSPHOKINASE Ordered. EDMS 00:40 Complete Blood Count Reviewed. cs11 00:57 Acetaminophen Level Reviewed. cs11 00:57 Basic Metabolic Profile Reviewed. cs11 00:57 Liver Profile Reviewed. cs11 00:57 Salicylate Level Reviewed. cs11 00:57 CREATINE PHOSPHOKINASE Reviewed. cs11 00:57 Ethyl Alcohol (ethanol) Reviewed. cs11 00:57 Thyroid Stimulating Hormone Reviewed. cs11 00:58 NS 0.9% 1000 ml IV at bolus once ordered. cs11 01:17 BED REQUEST+ADM ordered. EDMS 01:18 Drug Eval Toxicology ED Only Reviewed. cs11 01:44 Financial registration complete. slh 02:14 [facility] Payment Agreement was scanned into [employer] and attached to record. sl 02:25 Consult PFS/PSA/Kitchen Supervisor complete. jfb 02:28 LACTIC ACID LEVEL, LACTATE Ordered. EDMS 02:28 CARDIAC MARKER PANEL Ordered. EDMS 02:28 OSMOLALITY,URINE Ordered. EDMS 02:28 SODIUM,RANDOM URINE Ordered. EDMS 02:28 CHLORIDE,RANDOM URINE Ordered. EDMS 02:28 POTASSIUM,RANDOM URINE Ordered. EDMS 02:29 TOTAL PROTEIN,RANDOM URINE Ordered. EDMS 02:29 CREATININE,RANDOM URINE Ordered. EDMS 02:29 URINALYSIS Ordered. EDMS 02:29 URINE CULTURE Ordered. EDMS 02:29 BLOOD CULTURES Ordered. EDMS 02:29 BLOOD CULTURES Ordered. EDMS 02:33 CT Head without contrast Ordered. EDMS 02:34 C REACTIVE PROTEIN QUANTITATIV Ordered. EDMS 02:34 RENAL US Ordered. EDMS 02:35 PROTHROMBIN TIME PROFILE\E\INR Ordered. EDMS 02:35 COMPLETE BLOOD COUNT Ordered. EDMS 02:36 BASIC METABOLIC PROFILE Ordered. EDMS 02:36 MAGNESIUM LEVEL Ordered. EDMS 02:37 Admission / Observation Status ordered. EDMS 02:48 Chest, 1 view Ordered. EDMS 03:30 CARDIAC MARKER PANEL Ordered. EDMS 04:05 LR Solution 1000 ml IV at 200 mL/hr once ordered. [facility] 06:12 OSMOLALITY, SERUM Ordered. EDMS 06:37 REGULAR DIET PED PLASTIC MEJÍA ordered. EDMS 18:50 T-Sheet-- Draft Copy was scanned into [employer] and attached to record. r 10/09 15:04 ECG/EKG was scanned into [employer] and attached to record. gb Administered Medications: 10/08 00:10 Drug: NS 0.9% 1000 ml [sodium chloride 0.9 % intravenous solution] Route: IV; Rate: rishi bolus; Site: right antecubital; 01:12 Follow up: IV Status: Completed infusion mlc 00:20 Drug: Haloperidol 5 mg [haloperidol lactate 5 mg/mL injection solution (1 mL)] Route: mlc IVP; Site: right antecubital; 00:54 Follow up: Response: Anxiety is improved; No Adverse Reaction mlc 00:20 Drug: diphenhydrAMINE 50 mg [diphenhydramine 50 mg/mL injection solution (1 mL)] Route: mlc IVP; Site: right antecubital; 00:54 Follow up: Response: No Adverse Reaction mlc 01:12 Drug: NS 0.9% 1000 ml [sodium chloride 0.9 % intravenous solution] Route: IV; Rate: mlc bolus; Site: right antecubital; 02:17 Follow up: IV Status: Completed infusion mlc 04:05 Drug: LR 1000 ml [lactated ringers intravenous solution] Route: IV; Rate: 200 mL/hr; [facility] Site: right antecubital; 15:01 Follow up: IV Status: Infusion continued upon admit kr3 Signatures: Dispatcher [employer] Franklin Cantor, RN JOY Moreno, Janeth Pablo, RN Karen Fournier, Reg Reg Sarahy Garnett RN RN kr3 Danni Carpio RN RN mf3 Betty Arambula, PSA PSA jfb Harish Kitchen, DO DO cs11 Ofelia Gallardo RN RN mlc Hook, Sandra [facility] Karen Membreno The chart was reviewed and I authenticate all verbal orders and agree with the evaluation and treatment provided.Corrections: (The following items were deleted from the chart) 00:16 00:07 CREATINE PHOSPHOKINASE+LAB ordered. EDMS EDMS 03:30 02:28 CARDIAC MARKER PANEL ordered. EDMS EDMS 06:14 02:28 OSMOLALITY, SERUM ordered. EDMS EDMS 06:16 06:14 ISOPROPANOL,ISOPROPYL ALCOHOL ordered. EDMS EDMS 06:37 02:37 NPO DIET ordered. EDMS EDMS 06:57 06:14 ETHYLENE GLYCOL ordered. EDMS EDMS 06:57 06:14 METHANOL POISON CONTROL (ED) ordered. EDMS EDMS 08:50 02:28 ARTERIAL BLOOD GAS ordered. EDMS EDMS 08:50 06:11 ARTERIAL BLOOD GAS ordered. EDMS EDMS Attachments: 02:14 [facility] Payment Agreement [facility] 18:50 T-Sheet-- Draft Copy r 10/09 15:04 ECG/EKG Chart Complete MTDD
[2016-10-13 00:06] LABS: MDPV Negative (NEGATIVE); MEPHEDRONE Negative (NEGATIVE)
== END 2016-10-09 13:47 | disposition home or self-care (01) | DRG 52 ==
LOC: M ED 23:47 → M ED INP 10-08 02:34 → M PCU 10-08 16:08
PROVIDERS: ADMIT Hospitalist; ATTEND Hospitalist
DX: G92 Toxic encephalopathy (principal); N17.9 Acute kidney failure, unspecified; M62.82 Rhabdomyolysis; J45.909 Unspecified asthma, uncomplicated; T40.5X1A Poisoning by cocaine, accidental (unintentional), initial encounter; F19.10 Other psychoactive substance abuse, uncomplicated; D72.829 Elevated white blood cell count, unspecified; Z79.899 Other long term (current) drug therapy

== ENCOUNTER 2017-08-07 16:13 | Emergency (ER) | payer MEDICAID, OTHER, SELFPAY ==
[~2017-08-07] VITALS: Ht 182.9 cm; Wt 111.4 kg
[~2017-08-07 16:13] MED LIST: PROAAER10 INH
[2017-08-07 16:20] VITALS: BP 134/79
[2017-08-07] MEDS ORDERED: NS 1,000 ML IV ONE (18:15)
[2017-08-07 18:26] LABS: MEAN CORPUSCULAR HGB CONC 35.9 g/dl (32.0-36.5); MEAN CORPUSCULAR VOLUME 83.6 fl (80.0-96.0); PLATELET COUNT, AUTOMATED 252 10^3/uL (150-450); RED CELL DISTRIBUTION WIDTH 12.3 % (11.5-14.5); WHITE BLOOD COUNT 20.3 10^3/uL (4.0-10.0)
[2017-08-07] MEDS ORDERED: LIDOCAINE 1% MDV 20ML VIAL As Ordered ONE (18:27)
[2017-08-07 18:33] LABS: ADD MANUAL DIFFER YES; DIFF SLIDE NUMBER 362; POSITIVE DIFF POS FLAG
[2017-08-07 18:53] LABS: ANION GAP 11 MEQ/L (8-16); BLOOD UREA NITROGEN 46 MG/DL (7-18); CARBON DIOXIDE LEVEL 23 MEQ/L (21-32); CHLORIDE LEVEL 106 MEQ/L (98-107); CREATININE FOR GFR 1.84 MG/DL (0.70-1.30); GLOMERULAR FILTRATION RATE 47.2 (>60); GLUCOSE, FASTING 95 MG/DL (70-105); POTASSIUM SERUM 4.1 MEQ/L (3.5-5.1); SODIUM LEVEL 140 MEQ/L (136-145)
[2017-08-07 18:53] LABS: METHADONE URINE NEGATIVE (NEGATIVE)
[2017-08-07 19:13] LABS: EOSINOPHILS 1 % (0-5)
== END 2017-08-07 19:37 | disposition left against medical advice (07) ==
LOC: EDBD 16:13 → M ED 16:13
DX: S51.812A Laceration without foreign body of left forearm, initial encounter (principal); N17.9 Acute kidney failure, unspecified; D72.829 Elevated white blood cell count, unspecified; X99.1XXA Assault by knife, initial encounter; Y92.89 Other specified places as the place of occurrence of the external cause; Y93.89 Activity, other specified; Y99.9 Unspecified external cause status
CPT/HCPCS: 12002; 80048; 80307; 85025; 99284; G0480

== ENCOUNTER 2017-08-21 17:47 | Emergency (ER) | payer MEDICAID ==
[~2017-08-21] VITALS: Ht 182.9 cm; Wt 109.1 kg
[2017-08-21 17:47] VITALS: BP 141/88
[2017-08-21] MEDS ORDERED: KEFL500C17 PO (18:47)
== END 2017-08-21 19:02 | disposition home or self-care (01) ==
LOC: M ED 17:47
DX: S90.822A Blister (nonthermal), left foot, initial encounter (principal); X58.XXXA Exposure to other specified factors, initial encounter; Y92.9 Unspecified place or not applicable; Y93.9 Activity, unspecified; Y99.9 Unspecified external cause status; F17.200 Nicotine dependence, unspecified, uncomplicated; S51.819D Laceration without foreign body of unspecified forearm, subsequent encounter; X58.XXXD Exposure to other specified factors, subsequent encounter

== ENCOUNTER 2017-09-16 09:06 | Emergency (ER) | payer OTHER, MEDICAID ==
[2017-09-16 09:42] LABS: HEMATOCRIT 42.3 % (42.0-52.0); HEMOGLOBIN 14.4 g/dl (14.0-18.0); MEAN CORPUSCULAR HEMOGLOBIN 29.1 pg (27.0-33.0); MEAN CORPUSCULAR VOLUME 85.5 fl (80.0-96.0); PLATELET COUNT, AUTOMATED 238 10^3/uL (150-450); RED BLOOD COUNT 4.95 10^6/uL (4.30-6.10); RED CELL DISTRIBUTION WIDTH 12.7 % (11.5-14.5); WHITE BLOOD COUNT 17.8 10^3/uL (4.0-10.0)
[2017-09-16 10:22] LABS: AMPHETAMINES LEVEL URINE NEGATIVE (NEGATIVE); BARBITURATES URINE NEGATIVE (NEGATIVE); BENZODIAZEPINES URINE POSITIVE (NEGATIVE); CANNABINOIDS URINE POSITIVE (NEGATIVE); COCAINE METABOLITE URINE POSITIVE (NEGATIVE); METHADONE URINE NEGATIVE (NEGATIVE); OPIATES URINE NEGATIVE (NEGATIVE); PHENCYCLIDINE URINE NEGATIVE (NEGATIVE)
[2017-09-16 10:32] LABS: ALBUMIN 4.6 GM/DL (3.2-5.2); ALBUMIN/GLOBULIN RATIO 1.48 (1.00-1.93); ALKALINE PHOSPHATASE 100 U/L (45-117); ALT/SGPT 107 U/L (12-78); ANION GAP 12 MEQ/L (8-16); AST/SGOT 53 U/L (7-37); BILIRUBIN,DIRECT 0.2 MG/DL (0.0-0.2); BILIRUBIN,TOTAL 0.7 MG/DL (0.2-1.0); BLOOD UREA NITROGEN 32 MG/DL (7-18); CARBON DIOXIDE LEVEL 22 MEQ/L (21-32); CHLORIDE LEVEL 105 MEQ/L (98-107); CREATININE FOR GFR 1.69 MG/DL (0.70-1.30); ETHYL ALCOHOL (ETHANOL) < 0.003 % (0.000-0.010); GLOMERULAR FILTRATION RATE 52.1 (>60); GLUCOSE, FASTING 85 MG/DL (70-105); POTASSIUM SERUM 3.9 MEQ/L (3.5-5.1); SALICYLATE LEVEL 3.7 MG/DL (5.0-30.0); SODIUM LEVEL 139 MEQ/L (136-145); TOTAL PROTEIN 7.7 GM/DL (6.4-8.2)
[2017-09-16 10:40] LABS: BASO # 0.1 10^3/uL (0.0-0.2); BASO % 0.3 % (0.0-1.0); EOS # 0.1 10^3/uL (0.0-0.50); EOS % 0.4 % (0.0-3.0); IMMATURE GRANULOCYTE # 0.1 10^3/uL (0-0); IMMATURE GRANULOCYTE % 0.4 % (0-0); LYMPH # 1.2 10^3/uL (1.5-6.5); LYMPH % 6.7 % (24.0-44.0); MONO # 1.4 10^3/uL (0.0-0.8); MONO % 7.8 % (0.0-5.0); NEUTROPHILS % 84.4 % (36.0-66.0)
[2017-09-16 10:43] LABS: DIFF SLIDE NUMBER 134; PLATELET ESTIMATE NORMAL (NORMAL)
[2017-09-16 10:49] LABS: ACETAMINOPHEN LEVEL < 2.0 UG/ML (10.0-30.0)
[2017-09-16 11:03] LABS: CPK CREATINE PHOSPHOKINASE 1012 U/L (39-308)
== END 2017-09-16 13:10 | disposition home or self-care (01) ==
LOC: M ED 09:06
DX: F12.10 Cannabis abuse, uncomplicated (principal); F14.10 Cocaine abuse, uncomplicated; F13.10 Sedative, hypnotic or anxiolytic abuse, uncomplicated; J45.909 Unspecified asthma, uncomplicated; F17.200 Nicotine dependence, unspecified, uncomplicated
CPT/HCPCS: 80320

== ENCOUNTER 2017-10-01 20:50 | Inpatient (IN) | payer OTHER ==
[~2017-10-01 20:50] MED LIST changes: +ACETAMINOPHEN TAB 650MG DOSE (2X325MG) PO; +ALBUTEROL 90 MCG/ACT 8GM HFA INHALER INH; +MAALOX 30 ML SUSP *UDC PO; +MOM 30ML SUSPENSION UDC PO; +OLANZapine ORAL DISINTEGRATING TAB 5MG PO; +ONDANSETRON 4 MG TAB (S0181) PO; -PROAAER10 INH
[2017-10-01] MEDS: QUEtiapine FUMARATE 200 MG TAB PO (23:35)
[2017-10-01] MEDS: guaiFENesin ER 600 MG TAB PO (23:35)
[2017-10-01] MEDS: DOXYCYCLINE HYCLATE 100 MG TAB PO (23:35)
[2017-10-02] MEDS: guaiFENesin ER 600 MG TAB PO ×2 (08:34→21:14)
[2017-10-02] MEDS: DOXYCYCLINE HYCLATE 100 MG TAB PO ×2 (08:34→21:14)
[2017-10-02] MEDS: CitaloPRAM (CeleXA) 20 MG TAB PO (08:34)
[2017-10-02] MEDS: QUEtiapine FUMARATE 200 MG TAB PO ×2 (08:34→21:14)
[2017-10-03] MEDS: guaiFENesin ER 600 MG TAB PO ×2 (10:12→20:30)
[2017-10-03] MEDS: DOXYCYCLINE HYCLATE 100 MG TAB PO ×2 (10:12→20:30)
[2017-10-03] MEDS: CitaloPRAM (CeleXA) 20 MG TAB PO (10:12)
[2017-10-03] MEDS: QUEtiapine FUMARATE 200 MG TAB PO ×2 (10:12→20:30)
[2017-10-03] MEDS: INFLUENZA QUADRIVALENT PF VACCINE 0.5ML SYRINGE (90686) IM (10:13)
[2017-10-04] MEDS: guaiFENesin ER 600 MG TAB PO (09:26)
[2017-10-04] MEDS: CitaloPRAM (CeleXA) 20 MG TAB PO (09:26)
[2017-10-04] MEDS: DOXYCYCLINE HYCLATE 100 MG TAB PO (09:26)
[2017-10-04] MEDS: QUEtiapine FUMARATE 200 MG TAB PO (09:26)
== END 2017-10-04 14:05 | disposition home or self-care (01) | DRG 774 ==
LOC: M PSY 20:50
DX: F19.94 Other psychoactive substance use, unspecified with psychoactive substance-induced mood disorder (principal); F14.90 Cocaine use, unspecified, uncomplicated; F32.9 Major depressive disorder, single episode, unspecified; F79 Unspecified intellectual disabilities; J45.909 Unspecified asthma, uncomplicated; F17.210 Nicotine dependence, cigarettes, uncomplicated; F12.90 Cannabis use, unspecified, uncomplicated

== ENCOUNTER → 2017-11-20 | Outpatient (CLI) | payer OTHER | LOC: M WUC 19:29 | DX: M25.532 Pain in left wrist (principal) | CPT/HCPCS: 73110 ==

== ENCOUNTER → 2018-01-30 | Outpatient (REF) | payer OTHER ==
[2018-01-30 17:17] LABS: HEMATOCRIT 44.9 % (42.0-52.0); HEMOGLOBIN 15.3 g/dl (13.5-17.5); MEAN CORPUSCULAR HEMOGLOBIN 28.3 pg (27.0-33.0); MEAN CORPUSCULAR HGB CONC 34.1 g/dl (32.0-36.5); MEAN CORPUSCULAR VOLUME 83.1 fl (80.0-96.0); PLATELET COUNT, AUTOMATED 188 10^3/uL (150-450); RED CELL DISTRIBUTION WIDTH 13.2 % (11.5-14.5); WHITE BLOOD COUNT 5.5 10^3/uL (4.0-10.0)
[2018-01-30 19:31] LABS: ALBUMIN 3.9 GM/DL (3.2-5.2); ALBUMIN/GLOBULIN RATIO 1.26 (1.00-1.93); ALKALINE PHOSPHATASE 78 U/L (45-117); ALT/SGPT 35 U/L (12-78); ANION GAP 7 MEQ/L (8-16); AST/SGOT 21 U/L (7-37); BILIRUBIN,TOTAL 0.3 MG/DL (0.2-1.0); BLOOD UREA NITROGEN 13 MG/DL (7-18); CALCIUM LEVEL 8.7 MG/DL (8.5-10.1); CARBON DIOXIDE LEVEL 28 MEQ/L (21-32); CHLORIDE LEVEL 107 MEQ/L (98-107); CREATININE FOR GFR 1.01 MG/DL (0.70-1.30); GLOMERULAR FILTRATION RATE > 60.0 (>60); GLUCOSE, FASTING 95 MG/DL (70-100); SODIUM LEVEL 142 MEQ/L (136-145)
== END ==
LOC: M LAB REF 16:56
DX: Z51.81 Encounter for therapeutic drug level monitoring (principal); Z79.899 Other long term (current) drug therapy
CPT/HCPCS: 80053

== ENCOUNTER 2018-10-26 22:53 | Emergency (ER) | payer MEDICAID, OTHER ==
[~2018-10-26] VITALS: Ht 182.9 cm; Wt 109.1 kg
[~2018-10-26 22:53] MED LIST changes: -ACETAMINOPHEN TAB 650MG DOSE (2X325MG) PO; -ALBUTEROL 90 MCG/ACT 8GM HFA INHALER INH; +CELE20TA PO; +DOXY-350 PO; +KEFL500C17 PO; -MAALOX 30 ML SUSP *UDC PO; -MOM 30ML SUSPENSION UDC PO; +MUCI600T37 PO; -OLANZapine ORAL DISINTEGRATING TAB 5MG PO; -ONDANSETRON 4 MG TAB (S0181) PO; +PROAAER10 INH; +QUET1TAB9 PO
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
[2018-10-27 00:15] VITALS: BP 163/80
== END 2018-10-27 00:16 | disposition home or self-care (01) ==
LOC: M ED 22:53
DX: S01.01XA Laceration without foreign body of scalp, initial encounter (principal); W22.8XXA Striking against or struck by other objects, initial encounter; Y92.410 Unspecified street and highway as the place of occurrence of the external cause; F31.9 Bipolar disorder, unspecified; F17.200 Nicotine dependence, unspecified, uncomplicated; Z72.89 Other problems related to lifestyle; Z79.899 Other long term (current) drug therapy

== ENCOUNTER → 2019-04-05 | Outpatient (CLI) | payer MEDICAID ==
[2019-04-05 17:05] LABS: BASO % 0.7 % (0.0-1.0); EOS # 0.2 10^3/uL (0.0-0.50); EOS % 4.1 % (0.0-3.0); HEMATOCRIT 45.2 % (42.0-52.0); HEMOGLOBIN 15.4 g/dl (13.5-17.5); LYMPH # 1.7 10^3/uL (1.5-6.5); LYMPH % 30.7 % (24.0-44.0); MEAN CORPUSCULAR HEMOGLOBIN 29.1 pg (27.0-33.0); MEAN CORPUSCULAR HGB CONC 34.1 g/dl (32.0-36.5); MEAN CORPUSCULAR VOLUME 85.4 fl (80.0-96.0); MONO # 0.4 10^3/uL (0.0-0.8); MONO % 7.9 % (0.0-5.0); NEUTROPHILS # 3.1 10^3/uL (1.8-7.7); NEUTROPHILS % 56.1 % (36.0-66.0); PLATELET COUNT, AUTOMATED 219 10^3/uL (150-450); RED BLOOD COUNT 5.29 10^6/uL (4.30-6.10); WHITE BLOOD COUNT 5.6 10^3/uL (4.0-10.0)
[2019-04-05 17:09] LABS: APPEARANCE, URINE CLOUDY (CLEAR); BACTERIA, URINE AUTO NEGATIVE (NEGATIVE); BILIRUBIN, URINE AUTO NEGATIVE (NEGATIVE); BLOOD, URINE BLOOD NEGATIVE (NEGATIVE); COLOR, URINE YELLOW (YELLOW); GLUCOSE, URINE (UA) AUTO NEGATIVE (NEGATIVE); KETONE, URINE AUTO NEGATIVE (NEGATIVE); LEUKOCYTE ESTERASE, URINE AUTO NEGATIVE (NEGATIVE); NITRITE, URINE AUTO NEGATIVE (NEGATIVE); PROTEIN, URINE AUTO NEGATIVE (NEGATIVE); RBC, URINE AUTO 0 /HPF (0-3); SPECIFIC GRAVITY URINE AUTO 1.024 (1.002-1.035); SQUAMOUS EPITHELIAL CELL UR AU 0 /HPF (0-6); UROBILINOGEN, URINE AUTO 0.2 mg/dL (0.0-2.0); WBC, URINE AUTO 0 /HPF (0-3)
[2019-04-05 17:18] LABS: ALBUMIN 4.1 GM/DL (3.2-5.2); ALT/SGPT 39 U/L (12-78); BILIRUBIN,TOTAL 0.2 MG/DL (0.2-1.0); BLOOD UREA NITROGEN 17 MG/DL (7-18); CALCIUM LEVEL 8.9 MG/DL (8.5-10.1); CARBON DIOXIDE LEVEL 29 MEQ/L (21-32); CHLORIDE LEVEL 107 MEQ/L (98-107); CHOLESTEROL LEVEL 187 MG/DL (<200); CHOLESTEROL RISK RATIO 5.843 (<5); CREATININE FOR GFR 1.09 MG/DL (0.70-1.30); FREE T4 0.96 NG/DL (0.76-1.46); GLOMERULAR FILTRATION RATE > 60.0 (>60); GLUCOSE, FASTING 97 MG/DL (70-100); HDL CHOLESTEROL 32 MG/DL (>40); LDL CHOLESTEROL 97 MG/DL (<100); NON-HDL-C 155 MG/DL; POTASSIUM SERUM 4.5 MEQ/L (3.5-5.1); SODIUM LEVEL 142 MEQ/L (136-145); TOTAL PROTEIN 7.1 GM/DL (6.4-8.2); TRIGLYCERIDES LEVEL 289 MG/DL (<150)
[2019-04-05 17:20] LABS: TOTAL 25(OH) VITAMIN D 25.3 NG/ML (30.0-100.0)
[2019-04-05 17:39] LABS: HEMOGLOBIN A1c 5.8 %
[2019-04-05 18:00] LABS: HIV 1&2 SCREEN CENTAUR NEGATIVE (NEGATIVE)
[2019-04-05 20:03] LABS: CHLAMYDIA DNA AMPLIFICATION NEGATIVE (NEGATIVE); GC DNA AMPLIFICATION NEGATIVE (NEGATIVE)
[2019-04-08 11:42] LABS: HEPATITIS B SURFACE ANTIBODY POSITIVE (POSITIVE)
[2019-04-08 11:53] LABS: HEPATITIS B SURFACE ANTIGEN NEGATIVE (NEGATIVE)
[2019-04-08 12:20] LABS: HEPATITIS C VIRUS ABY INDEX 0.1 INDEX (<0.8)
[2019-04-08 12:22] LABS: HEPATITIS A ANTIBODY IGM NEGATIVE (NEGATIVE)
[2019-04-09 00:07] LABS: HEPATITIS A IgG TOTAL Negative (Negative); HEPATITIS B CORE ANTIBODY IGG Negative (Negative); HSV IgM TYPES 1&2 <0.91 Ratio (0.00-0.90); Lyme Disease IgG/IgM Antibodie <0.91 ISR (0.00-0.90); Lyme Disease IgM Ab Quantitati <0.80 index (0.00-0.79)
== END ==
LOC: M LRY 10:09
PROVIDERS: ATTEND Family Medicine
DX: Z11.3 Encounter for screening for infections with a predominantly sexual mode of transmission (principal); Z13.228 Encounter for screening for other metabolic disorders

== ENCOUNTER 2019-06-03 15:52 | Emergency (ER) | payer MEDICAID, OTHER ==
[~2019-06-03] VITALS: Ht 182.9 cm; Wt 123.6 kg
[~2019-06-03 15:52] MED LIST changes: -QUET1TAB9 PO; +QUET200T2 PO
[2019-06-03] MEDS ORDERED: ADACEL/BOOSTRIX VACCINE (DIPHTH/PERTUSS/ACELL/TETANUS)0.5ML SYR (90715) IM ONE (18:15)
[2019-06-03] MEDS ORDERED: LIDOCAINE 2% MDV 20 ML VIAL SC ONE (18:15)
[2019-06-03 19:05] VITALS: BP 142/98
--- NOTE | 2019-06-03 19:11 | REP ---
Right thumb four views : There is no fracture or dislocation. Mineralization and joint spaces are normal. There are no calcifications or foreign bodies. Impression: Negative right thumb . Electronically Signed by Sean Ferraro MD 06/03/2019 07:02 P
== END 2019-06-03 19:15 | disposition home or self-care (01) ==
LOC: M ED 15:52
DX: S61.011A Laceration without foreign body of right thumb without damage to nail, initial encounter (principal); W26.0XXA Contact with knife, initial encounter; Y92.89 Other specified places as the place of occurrence of the external cause; Y99.0 Civilian activity done for income or pay; F17.210 Nicotine dependence, cigarettes, uncomplicated

== ENCOUNTER → 2019-07-09 | Outpatient (REF) | payer MEDICAID ==
[2019-07-09 20:35] LABS: ALT/SGPT 65 U/L (12-78); BILIRUBIN,TOTAL 0.2 MG/DL (0.2-1.0); BLOOD UREA NITROGEN 19 MG/DL (7-18); CALCIUM LEVEL 9.1 MG/DL (8.5-10.1); CARBON DIOXIDE LEVEL 28 MEQ/L (21-32); CHLORIDE LEVEL 109 MEQ/L (98-107); CHOLESTEROL LEVEL 223 MG/DL (<200); CHOLESTEROL RISK RATIO 7.193 (<5); CREATININE FOR GFR 1.22 MG/DL (0.70-1.30); GLOMERULAR FILTRATION RATE > 60.0 (>60); GLUCOSE, FASTING 96 MG/DL (70-100); HDL CHOLESTEROL 31 MG/DL (>40); NON-HDL-C 192 MG/DL; POTASSIUM SERUM 4.1 MEQ/L (3.5-5.1); SODIUM LEVEL 143 MEQ/L (136-145); TOTAL PROTEIN 7.2 GM/DL (6.4-8.2); TRIGLYCERIDES LEVEL 653 MG/DL (<150)
[2019-07-09 20:40] LABS: HEMOGLOBIN A1c 5.4 %
== END ==
LOC: M LAB REF 19:15
PROVIDERS: ATTEND Family Medicine
DX: R73.03 Prediabetes (principal)

== ENCOUNTER → 2020-03-13 | Outpatient (CLI) | payer OTHER | LOC: M LABSMTC 14:10 | PROVIDERS: ATTEND Family Medicine | DX: Z11.59 Encounter for screening for other viral diseases (principal) | CPT/HCPCS: C9803; U0003 ==

== ENCOUNTER → 2020-04-17 | Outpatient (REF) | payer OTHER, MEDICAID ==
[2020-06-04 22:07] LABS: BASO % 0.4 % (0.0-1.0); EOS # 0.2 10^3/uL (0.0-0.5); EOS % 2.9 % (0.0-3.0); HEMATOCRIT 45.9 % (42.0-52.0); HEMOGLOBIN 15.1 g/dl (13.5-17.5); LYMPH # 1.7 10^3/uL (1.5-5.0); LYMPH % 24.7 % (24.0-44.0); MEAN CORPUSCULAR HEMOGLOBIN 28.6 pg (27.0-33.0); MEAN CORPUSCULAR HGB CONC 32.9 g/dl (32.0-36.5); MEAN CORPUSCULAR VOLUME 86.9 fl (80.0-96.0); MONO # 0.5 10^3/uL (0.0-0.8); MONO % 7.9 % (0.0-5.0); NEUTROPHILS # 4.3 10^3/uL (1.5-8.5); NEUTROPHILS % 62.8 % (36.0-66.0); PLATELET COUNT, AUTOMATED 242 10^3/uL (150-450); RED BLOOD COUNT 5.28 10^6/uL (4.30-6.10); WHITE BLOOD COUNT 6.8 10^3/uL (4.0-10.0)
[2020-06-14 23:32] LABS: ALT/SGPT 90 U/L (12-78); BILIRUBIN,TOTAL 0.2 MG/DL (0.2-1.0); BLOOD UREA NITROGEN 20 MG/DL (7-18); CALCIUM LEVEL 9.3 MG/DL (8.5-10.1); CARBON DIOXIDE LEVEL 28 MEQ/L (21-32); CHLORIDE LEVEL 103 MEQ/L (98-107); CHOLESTEROL LEVEL 210 MG/DL (<200); CREATININE FOR GFR 1.06 MG/DL (0.70-1.30); FREE T4 0.91 NG/DL (0.76-1.46); GLOMERULAR FILTRATION RATE > 60.0 (>60); GLUCOSE, FASTING 113 MG/DL (70-100); HDL CHOLESTEROL 23 MG/DL (>40); HEMOGLOBIN A1c 5.5 %; NON-HDL-C 187 MG/DL; POTASSIUM SERUM 4.3 MEQ/L (3.5-5.1); SODIUM LEVEL 137 MEQ/L (136-145); TOTAL 25(OH) VITAMIN D 22.2 NG/ML (30.0-100.0); TOTAL PROTEIN 7.3 GM/DL (6.4-8.2); TRIGLYCERIDES LEVEL 896 MG/DL (<150)
== END ==
LOC: M LAB REF 12:53
PROVIDERS: ATTEND Physician Assistant
DX: K21.9 Gastro-esophageal reflux disease without esophagitis (principal); R06.83 Snoring; R06.81 Apnea, not elsewhere classified; K64.4 Residual hemorrhoidal skin tags; R49.8 Other voice and resonance disorders; J30.9 Allergic rhinitis, unspecified; E78.5 Hyperlipidemia, unspecified; R73.03 Prediabetes; Z72.0 Tobacco use

== ENCOUNTER → 2020-07-01 | Outpatient (REF) | payer OTHER, MEDICAID ==
[2020-07-01 16:42] LABS: BASO # 0.1 10^3/uL (0.0-0.2); EOS # 0.2 10^3/uL (0.0-0.5); HEMATOCRIT 45.8 % (42.0-52.0); HEMOGLOBIN 14.4 g/dl (13.5-17.5); MEAN CORPUSCULAR HGB CONC 31.4 g/dl (32.0-36.5); MEAN CORPUSCULAR VOLUME 82.8 fl (80.0-96.0); MONO # 0.6 10^3/uL (0.0-0.8); MONO % 7.7 % (0.0-5.0); NEUTROPHILS # 4.3 10^3/uL (1.5-8.5); NEUTROPHILS % 59.2 % (36.0-66.0); PLATELET COUNT, AUTOMATED 255 10^3/uL (150-450); RED BLOOD COUNT 5.53 10^6/uL (4.30-6.10); WHITE BLOOD COUNT 7.3 10^3/uL (4.0-10.0)
[2020-07-01 17:14] LABS: HEMOGLOBIN A1c 5.8 %
[2020-07-01 17:25] LABS: ALBUMIN 4.1 GM/DL (3.2-5.2); ALT/SGPT 58 U/L (12-78); BILIRUBIN,TOTAL 0.3 MG/DL (0.2-1.0); BLOOD UREA NITROGEN 17 MG/DL (7-18); CALCIUM LEVEL 9.1 MG/DL (8.5-10.1); CARBON DIOXIDE LEVEL 28 MEQ/L (21-32); CHLORIDE LEVEL 104 MEQ/L (98-107); CHOLESTEROL LEVEL 230 MG/DL (<200); CHOLESTEROL RISK RATIO 7.666 (<5); CREATININE FOR GFR 0.94 MG/DL (0.70-1.30); GLOMERULAR FILTRATION RATE > 60.0 (>60); GLUCOSE, FASTING 93 MG/DL (70-100); HDL CHOLESTEROL 30 MG/DL (>40); NON-HDL-C 200 MG/DL; POTASSIUM SERUM 4.7 MEQ/L (3.5-5.1); SODIUM LEVEL 137 MEQ/L (136-145); TOTAL PROTEIN 7.7 GM/DL (6.4-8.2); TRIGLYCERIDES LEVEL 503 MG/DL (<150)
== END ==
LOC: M LAB REF 16:17
PROVIDERS: ATTEND Physician Assistant
DX: E78.5 Hyperlipidemia, unspecified (principal); R73.03 Prediabetes; F41.1 Generalized anxiety disorder

== ENCOUNTER → 2020-08-04 | Outpatient (CLI) | payer SELFPAY | LOC: M LABSMTC 11:06 | PROVIDERS: ATTEND Pediatrics | DX: Z20.828 Contact with and (suspected) exposure to other viral communicable diseases (principal) ==